=== PATIENT | female | born 1950 | race Two or more races ===

== ENCOUNTER 2023-03-07 08:35 | Day surgery (SDC) | payer OTHER | END 2023-03-07 13:30 | disposition home or self-care (01) | LOC: AMB-ENDOS 08:35 | PROVIDERS: ATTEND Surgery | DX: D12.4 Benign neoplasm of descending colon (principal); D12.5 Benign neoplasm of sigmoid colon; K57.30 Diverticulosis of large intestine without perforation or abscess without bleeding; Z20.822 Contact with and (suspected) exposure to COVID-19 ==

== ENCOUNTER 2023-11-03 07:33 | Day surgery (SDC) | payer OTHER ==
[2023-11-03] MEDS ORDERED: DIPHENHYDRAMINE HCL 50 MG/ML VIAL 1ML IV ONE (10:15)
[2023-11-03] MEDS ORDERED: MIDAZOLAM HCL 2 MG/2 ML VIAL IV ONE (10:15)
[2023-11-03] MEDS ORDERED: fentaNYL CITRATE 50 MCG/ML AMPUL IV PUSH ONE (10:15)
== END 2023-11-03 11:35 | disposition home or self-care (01) ==
LOC: AMB-ENDOS 07:33
PROVIDERS: ATTEND Surgery
DX: D12.3 Benign neoplasm of transverse colon (principal); D12.4 Benign neoplasm of descending colon; K63.5 Polyp of colon; K57.30 Diverticulosis of large intestine without perforation or abscess without bleeding; Z91.040 Latex allergy status